=== PATIENT | female | born 1940 | race Caucasian/White ===

== ENCOUNTER 2020-07-17 14:39 | Observation (INO) ==
[2020-07-17] MEDS ORDERED: Ondansetron 4 MG/2 ML VIAL IVP PRN (17:30)
[2020-07-17] MEDS ORDERED: Naloxone 0.4 MG/ML INJ IVP PRN (17:30)
[2020-07-17] MEDS ORDERED: Prochlorperazine 10 MG/2 ML VIAL IVP PRN (17:54)
[2020-07-17 18:08] LABS: BUN/Creatinine Ratio 9 (6-26); Blood Urea Nitrogen 6 mg/dL (8-23); Calcium 8.9 mg/dL (8.6-10.3); Carbon Dioxide 25 mEq/L (23-29); Chloride 86 mEq/L (98-107); Glucose 110 mg/dL (70-105); Osmolality,Calculated 246 (280-300); Potassium 3.9 mEq/L (3.5-5.1); Sodium 119 mEq/L (136-145); eGFR For African Americans > 60 (> 60); eGFR For Non-African Americans > 60 (> 60)
[2020-07-17] MEDS: Pantoprazole 40 MG VIAL IVP SCH (18:30)
[2020-07-17] MEDS: *HR* Heparin 5,000 UNIT/ML VIAL SQ SCH (18:31)
[2020-07-17] MEDS: 0.9 % Sodium Chloride 1,000 ML IVC SCH (19:26)
[2020-07-17] MEDS ORDERED: Acetaminophen 325 MG TABLET PO PRN (20:35)
[2020-07-17] MEDS: Aspirin Enteric Coated 81 MG Tablet PO SCH (20:47)
[2020-07-17] MEDS: *HR* HYDROcodone/Acet 7.5/325 mg TABLET PO PRN (23:20)
[2020-07-18 01:33] LABS: Basophils # 0.1 K/mcL (0.0-0.2); Basophils % 0.9 %; Eosinophils # 0.2 K/mcL (0.0-0.6); Hematocrit 30.6 % (35.3-44.9); Immature Granulocytes % 0.4 % (0-4); Lymphocytes # 2.5 K/mcL (0.6-4.6); Lymphocytes % 30.3 %; Mean Corpuscular HGB Conc 35.9 g/dL (31.6-35.5); Mean Platelet Volume 7.9 fL (9.4-12.4); Monocytes # 1.1 K/mcL (0.0-1.3); Neutrophils # 4.4 K/mcL (1.6-8.9); Platelet Count 241 K/mcL (140-400); Red Blood Count 3.44 M/mcL (3.82-4.97); Red Cell Distribution Width 11.7 % (11.5-14.5); Segmented Neutrophils % 53.4 %; White Blood Count 8.1 K/mcL (4.3-11.1)
[2020-07-18 01:46] LABS: Estimated Average Glucose 120 mg/dl; Hemoglobin A1C 5.8 %
[2020-07-18 01:57] LABS: BUN/Creatinine Ratio 8 (6-26); Blood Urea Nitrogen 5 mg/dL (8-23); Calcium 8.4 mg/dL (8.6-10.3); Carbon Dioxide 22 mEq/L (23-29); Chloride 87 mEq/L (98-107); Glucose 126 mg/dL (70-105); Osmolality,Calculated 245 (280-300); Potassium 3.3 mEq/L (3.5-5.1); Sodium 118 mEq/L (136-145); eGFR For African Americans > 60 (> 60); eGFR For Non-African Americans > 60 (> 60)
[2020-07-18] MEDS: 0.9 % Sodium Chloride 1,000 ML IVC SCH ×3 (04:18→23:32)
[2020-07-18] MEDS: Pantoprazole 40 MG VIAL IVP SCH ×2 (04:54→18:21)
[2020-07-18] MEDS: *HR* Heparin 5,000 UNIT/ML VIAL SQ SCH ×2 (04:54→18:21)
[2020-07-18 05:34] LABS: Sodium, Urine 56.1 mEq/L
[2020-07-18] MEDS: *HR* HYDROcodone/Acet 7.5/325 mg TABLET PO PRN (06:43)
[2020-07-18 07:26] LABS: BUN/Creatinine Ratio 9 (6-26); Blood Urea Nitrogen 5 mg/dL (8-23); Calcium 8.6 mg/dL (8.6-10.3); Carbon Dioxide 24 mEq/L (23-29); Chloride 89 mEq/L (98-107); Glucose 102 mg/dL (70-105); Osmolality,Calculated 251 (280-300); Potassium 3.4 mEq/L (3.5-5.1); Sodium 122 mEq/L (136-145); eGFR For African Americans > 60 (> 60); eGFR For Non-African Americans > 60 (> 60)
[2020-07-18] MEDS ORDERED: Potassium Chloride Elixir 20 MEQ/15 ML UDC PO ONE (08:23)
[2020-07-18] MEDS ORDERED: Lidocaine -MPF 2% 5 ML VIAL ONE ×2 (11:03→11:19)
[2020-07-18] MEDS ORDERED: *HR* Propofol 200 MG/20 ML VIAL IVP ONE (11:03)
[2020-07-18] MEDS ORDERED: Acetaminophen 325 MG TABLET PO PRN (11:16)
[2020-07-18 12:10] LABS: Thyroid Stimulating Hormone 0.617 mcIU/mL (0.340-5.600)
[2020-07-18] MEDS ORDERED: DICLOFENAC SODIUM TP PRN (15:18)
[2020-07-18] MEDS ORDERED: *HR* HYDROcodone/Acet 7.5/325 mg TABLET PO PRN (15:18)
[2020-07-18] MEDS: Ondansetron ODT 4 MG TAB.RAPDIS SL SCH ×2 (16:06→23:32)
[2020-07-18] MEDS: carvediloL 25 MG TABLET PO SCH (16:07)
[2020-07-18] MEDS: Aspirin Enteric Coated 81 MG Tablet PO SCH (20:12)
[2020-07-18] MEDS: Gabapentin 300 MG CAPSULE PO SCH (20:12)
[2020-07-18] MEDS: traZODone 50 MG TABLET PO SCH (20:12)
[2020-07-18] MEDS: Budesonide/Formoterol 160/4.5 1 PUFF INH IH SCH (21:46)
[2020-07-19 01:04] LABS: Basophils # 0.1 K/mcL (0.0-0.2); Basophils % 1.2 %; Eosinophils # 0.2 K/mcL (0.0-0.6); Eosinophils % 2.8 %; Hematocrit 30.8 % (35.3-44.9); Hemoglobin 11.1 g/dL (11.5-15.4); Immature Granulocytes % 0.2 % (0-4); Lymphocytes % 30.1 %; Mean Corpuscular Hemoglobin 32.6 pg (28.0-33.3); Mean Corpuscular Volume 90.3 fL (83.0-100.0); Mean Platelet Volume 7.8 fL (9.4-12.4); Monocytes # 0.9 K/mcL (0.0-1.3); Monocytes % 14.1 %; Neutrophils # 3.4 K/mcL (1.6-8.9); Platelet Count 240 K/mcL (140-400); Red Blood Count 3.41 M/mcL (3.82-4.97); Red Cell Distribution Width 11.9 % (11.5-14.5); Segmented Neutrophils % 51.6 %; White Blood Count 6.5 K/mcL (4.3-11.1)
[2020-07-19 01:23] LABS: BUN/Creatinine Ratio 7 (6-26); Blood Urea Nitrogen 4 mg/dL (8-23); Calcium 8.4 mg/dL (8.6-10.3); Carbon Dioxide 25 mEq/L (23-29); Chloride 98 mEq/L (98-107); Glucose 113 mg/dL (70-105); Osmolality,Calculated 266 (280-300); Potassium 3.2 mEq/L (3.5-5.1); Sodium 129 mEq/L (136-145); eGFR For African Americans > 60 (> 60); eGFR For Non-African Americans > 60 (> 60)
[2020-07-19] MEDS: Pantoprazole 40 MG VIAL IVP SCH ×2 (05:58→16:27)
[2020-07-19] MEDS: *HR* Heparin 5,000 UNIT/ML VIAL SQ SCH ×2 (05:58→16:28)
[2020-07-19] MEDS: Gabapentin 300 MG CAPSULE PO SCH ×3 (08:31→20:28)
[2020-07-19] MEDS: allopurinoL 100 MG TABLET PO SCH (08:31)
[2020-07-19] MEDS: lisinopriL 5 MG TABLET PO SCH (08:31)
[2020-07-19] MEDS: carvediloL 25 MG TABLET PO SCH ×2 (08:31→16:28)
[2020-07-19] MEDS: amLODIPine 5 MG TABLET PO SCH (08:31)
[2020-07-19] MEDS: Ondansetron ODT 4 MG TAB.RAPDIS SL SCH ×3 (08:31→23:37)
[2020-07-19] MEDS ORDERED: PRAVASTATIN SODIUM 20 MG PO SCH (09:00)
[2020-07-19 10:08] LABS: BUN/Creatinine Ratio 6 (6-26); Blood Urea Nitrogen 4 mg/dL (8-23); Calcium 8.6 mg/dL (8.6-10.3); Carbon Dioxide 23 mEq/L (23-29); Chloride 102 mEq/L (98-107); Glucose 106 mg/dL (70-105); Osmolality,Calculated 273 (280-300); Potassium 3.3 mEq/L (3.5-5.1); Sodium 133 mEq/L (136-145); eGFR For African Americans > 60 (> 60); eGFR For Non-African Americans > 60 (> 60)
[2020-07-19] MEDS: 0.9 % Sodium Chloride 1,000 ML IVC SCH ×2 (10:33→20:28)
[2020-07-19] MEDS: Budesonide/Formoterol 160/4.5 1 PUFF INH IH SCH ×2 (10:45→20:14)
[2020-07-19] MEDS ORDERED: Cetirizine HCl 5 MG/5 ML UDC PO PRN (11:09)
[2020-07-19] MEDS ORDERED: Loratadine 10 MG TABLET PO PRN (11:30)
[2020-07-19] MEDS: traZODone 50 MG TABLET PO SCH (20:26)
[2020-07-19] MEDS: Aspirin Enteric Coated 81 MG Tablet PO SCH (20:27)
[2020-07-20] MEDS: *HR* HYDROcodone/Acet 7.5/325 mg TABLET PO PRN ×3 (02:46→14:42)
[2020-07-20 03:46] LABS: Basophils # 0.1 K/mcL (0.0-0.2); Basophils % 0.9 %; Eosinophils # 0.2 K/mcL (0.0-0.6); Eosinophils % 1.8 %; Hemoglobin 10.7 g/dL (11.5-15.4); Immature Granulocytes % 0.2 % (0-4); Lymphocytes # 2.7 K/mcL (0.6-4.6); Lymphocytes % 28.6 %; Mean Corpuscular HGB Conc 34.5 g/dL (31.6-35.5); Mean Corpuscular Hemoglobin 32.3 pg (28.0-33.3); Mean Corpuscular Volume 93.7 fL (83.0-100.0); Mean Platelet Volume 8.1 fL (9.4-12.4); Monocytes # 0.9 K/mcL (0.0-1.3); Monocytes % 9.9 %; Neutrophils # 5.5 K/mcL (1.6-8.9); Platelet Count 225 K/mcL (140-400); Red Blood Count 3.31 M/mcL (3.82-4.97); Red Cell Distribution Width 12.1 % (11.5-14.5); Segmented Neutrophils % 58.6 %; White Blood Count 9.4 K/mcL (4.3-11.1)
[2020-07-20 04:08] LABS: BUN/Creatinine Ratio 11 (6-26); Blood Urea Nitrogen 7 mg/dL (8-23); Calcium 8.3 mg/dL (8.6-10.3); Carbon Dioxide 20 mEq/L (23-29); Chloride 104 mEq/L (98-107); Glucose 95 mg/dL (70-105); Osmolality,Calculated 272 (280-300); Potassium 3.8 mEq/L (3.5-5.1); Sodium 132 mEq/L (136-145); eGFR For African Americans > 60 (> 60); eGFR For Non-African Americans > 60 (> 60)
[2020-07-20] MEDS: Pantoprazole 40 MG VIAL IVP SCH (06:20)
[2020-07-20] MEDS: *HR* Heparin 5,000 UNIT/ML VIAL SQ SCH (06:21)
[2020-07-20] MEDS: Budesonide/Formoterol 160/4.5 1 PUFF INH IH SCH (07:16)
[2020-07-20] MEDS: Gabapentin 300 MG CAPSULE PO SCH ×2 (09:29→14:42)
[2020-07-20] MEDS: Ondansetron ODT 4 MG TAB.RAPDIS SL SCH (09:29)
[2020-07-20] MEDS: amLODIPine 5 MG TABLET PO SCH (09:30)
[2020-07-20] MEDS: carvediloL 25 MG TABLET PO SCH (09:30)
[2020-07-20] MEDS: allopurinoL 100 MG TABLET PO SCH (09:30)
[2020-07-20] MEDS: lisinopriL 5 MG TABLET PO SCH (09:30)
[2020-07-20 11:10] VITALS: BP 145/74
== END 2020-07-20 14:54 | disposition home health service (06) ==
LOC: 2ANU → SUATTDRO 16:47
PROVIDERS: ADMIT Internal Medicine; ATTEND Internal Medicine